=== PATIENT | female | born 1950 | race Caucasian/White ===

== ENCOUNTER → 2021-05-13 12:50 | Outpatient (CLI) | payer MEDICARE, SELFPAY ==
--- NOTE | ~2021-05-13 | XR_ITS ---
XR knee LT min 4V 05/13/2021 14:01 INDICATION: Left knee pain PROCEDURE: 4 views left knee COMPARISON: No prior studies for comparison. FINDINGS: Fracture, dislocation or subluxation is not identified. No significant joint effusion. The soft tissues appear within normal limits. No foreign bodies are identified. IMPRESSION: 1: NO ACUTE BONE OR JOINT ABNORMALITY IDENTIFIED. Reviewed, dictated and finalized at location A.
== END ==
PROVIDERS: Visit Provider Internal Medicine Pulmonary Disease
DX: M25.562 Pain in left knee (principal)
CPT/HCPCS: 73564

== ENCOUNTER → 2021-05-24 14:33 | Outpatient (CLI) | payer MEDICARE, SELFPAY ==
--- NOTE | ~2021-05-24 | XR_ITS ---
EXAMINATION: XR humerus LT DATE: 05/24/2021 15:13 INDICATION: Left shoulder pain radiating down the left arm TECHNIQUE: 1. AP internally and externally rotated, AP oblique externally rotated and axillary views of the left shoulder were obtained. 2. AP and lateral views of the left humerus were obtained. COMPARISON: None FINDINGS: Normal alignment at the left shoulder and elbow. No fracture. Left glenohumeral, acromioclavicular an d elbow joint spaces are normal. Small enthesophyte at the medial epicondyle of the distal left humer us. Soft tissues are unremarkable. Visual is portions of the left lung are clear. IMPRESSION: Essentially negative left shoulder and humerus radiographs. Reviewed, dictated and finalized at location A.
--- NOTE | ~2021-05-24 | XR_ITS ---
EXAMINATION: XR chest 2V DATE: 05/24/2021 15:13 INDICATION: Asthma, left shoulder pain TECHNIQUE: PA and lateral views of the chest are obtained. COMPARISON: None available FINDINGS: The lungs are free of acute opacities. There is no pleural effusion or pneumothorax. The ca rdiomediastinal silhouette is normal. There is mild thoracic spondylosis. Surgical clips in the upper abdomen on the lateral view are likely from prior cholecystectomy. IMPRESSION: 1. No acute cardiopulmonary abnormality. Reviewed, dictated and finalized at location B.
--- NOTE | ~2021-05-24 | XR_ITS ---
EXAMINATION: XR shoulder LT min 2V DATE: 05/24/2021 15:13 INDICATION: Left shoulder pain radiating down the left arm TECHNIQUE: 1. AP internally and externally rotated, AP oblique externally rotated and axillary views of the left shoulder were obtained. 2. AP and lateral views of the left humerus were obtained. COMPARISON: None FINDINGS: Normal alignment at the left shoulder and elbow. No fracture.Left glenohumeral, acromioclavicular an d elbow joint spaces are normal. Small enthesophyte at the medial epicondyle of the distal left humer us. Soft tissues are unremarkable. Visual is portions of the left lung are clear. IMPRESSION: Essentially negative left shoulder and humerus radiographs. Reviewed, dictated and finalized at location A.
== END ==
PROVIDERS: Visit Provider Internal Medicine Pulmonary Disease
DX: J45.909 Unspecified asthma, uncomplicated (principal); M25.519 Pain in unspecified shoulder
CPT/HCPCS: 71046; 73030; 73060